=== PATIENT | male | born 1980 | race Caucasian/White ===

== ENCOUNTER 2016-06-27 10:00 | Inpatient (IN) | payer OTHER ==
[~2016-06-27] VITALS: Ht 188 cm; Wt 185.6 kg
--- NOTE | ~2016-06-27 | OR ---
PATIENT'S NAME: EMMANUEL GERBER [facility] AGE: 36 Y [address] ROOM: [place] [id number] LOCATION: [facility] ADMIT DATE: 07/04/2016 OR/Procedure Report DISCHARGE DATE: FAMILY PHYSICIAN: VAL ROSADO MD ATTENDING PHYSICIAN: FADY GREENE SURGEON: Fady Greene MD HOST AND HOSTESS: 1. DEBBIE Adams. 2. 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 DATE OF PROCEDURE: 07/04/2016 PREOPERATIVE DIAGNOSES: 1. Degenerative joint disease, right knee. 2. Obesity (6 feet 2 inches tall and 185.6 kg). POSTOPERATIVE DIAGNOSES: 1. Degenerative joint disease, right knee. 2. Obesity (6 feet 2 inches tall and 185.6 kg). OPERATION: Right total knee arthroplasty with computer navigation. ANESTHESIA: Spinal anesthesia plus adductor canal block plus subcutaneous and periarticular local anesthesia (ropivacaine with epinephrine and Toradol). ESTIMATED BLOOD LOSS: Less than 20 mL. DRAIN: None. SPECIMEN: None. COMPLICATIONS: None. IMPLANT SYSTEM: [employer]. 1. Size 7 right posterior stabilized femoral component. 2. Size 6 universal modular tibial baseplate. 3. An 11 mm posterior stabilized size 6 X3 tibial polyethylene insert. 4. A 35 mm oval X3 patella component. INDICATIONS FOR SURGERY: Emmanuel Gerber is a 36-year-old male who presents with advanced right knee degenerative joint disease and associated severely compromised activities of daily living. The patient has decided to proceed with knee replacement after having been thoroughly counseled regarding the associated risks, benefits, and limitations. We have specifically reviewed the risks and implications of infection, deep venous thrombosis, pulmonary embolism, mortality, neurovascular complications, blood transfusion (and associated potential for disease transmission or transfusion reaction), PATIENT'S NAME: EMMANUEL GERBER [facility] AGE: 36 Y [address] ROOM: [place] [address] LOCATION: [facility] ADMIT DATE: 07/04/2016 OR/Procedure Report DISCHARGE DATE: FAMILY PHYSICIAN: VAL ROSADO MD ATTENDING PHYSICIAN: FADY GREENE stiffness, instability, mechanical deterioration of the components (due to wear and or loosening), and the potential need for revision. We have also emphasized the importance of active involvement and compliance with post- operative physical therapy as a means of optimizing range of motion and functional recovery. Informed consent has been granted. DESCRIPTION OF PROCEDURE: The patient was positioned supine after administration of anesthesia and prophylactic antibiotics. A well-padded pneumatic tourniquet was placed around the right proximal thigh, and the right lower extremity was prepped and draped with vigilant sterile technique. The patient's name as well as the intended operative side and procedure were confirmed with a verbal time-out involving myself, the circulating nurse, the scrub nurse, and the anesthesiologist. Examination under anesthesia demonstrated no active skin lesions or masses. There were well-healed inferomedial and inferolateral arthroscopy portal scars. There was a large effusion. There was no erythema. There was no abnormal warmth. There was a prominent flexion contracture. The thigh was very muscular, and there was a resultant very large soft tissue envelope surrounding the thigh and calf. Range of motion under anesthesia was from a 15 degree flexion contracture to 120 degrees of flexion. There was no ligamentous insufficiency. The right lower extremity was elevated and exsanguinated with an E[employer] wrap, and the pneumatic tourniquet was inflated to 300mmHg. The knee was approached through a longitudinal midline incision. A medial parapatellar arthrotomy was performed and the patella was everted. Examination of the joint space demonstrated a large effusion consisting of benign-appearing translucent synovial fluid. Cruciate ligaments were intact. There were moderate-sized osteophytes at the intercondylar notch. There were large osteophytes at the medial and lateral margins of the femoral trochlea. There were small osteophytes at the medial, lateral, and inferior margins of the patella. There were generalized grade 2 degenerative changes at the patellofemoral joint. There was a 1.5 cm diameter region of full-thickness delamination of articular cartilage from the central aspect of the medial femoral condyle. There were intermixed grade 3 and grade 4 degenerative changes throughout the lateral half of the lateral tibial plateau and the posterior half of the lateral femoral condyle. There was a moderate-sized osteophyte at the lateral femoral condyle. There was a moderate-sized osteophyte at the medial femoral condyle. The lateral meniscus was truncated, and there was degenerative tearing of the remnant of the lateral meniscus. The medial meniscus was intact. Remnants of the menisci and cruciate ligaments were excised. The [employer] PATIENT'S NAME: EMMANUEL GERBER [facility] AGE: 36 Y [address] ROOM: [address] [address] LOCATION: [facility] ADMIT DATE: 07/04/2016 OR/Procedure Report DISCHARGE DATE: FAMILY PHYSICIAN: VAL ROSADO MD ATTENDING PHYSICIAN: FADY GREENE computer navigation femoral tracker was pinned in place at the distal aspect of the femoral trochlea. Absence of motion between the femur and the tracking device was confirmed manually and visually. Femoral osseous landmarks were obtained in order to calibrate the computer navigation system. Landmarks included the center of rotation of the ipsilateral hip, the center-point of the distal femur, the femoral AP axis, 57 points on the medial femoral condyle articular surface, and 57 points on the lateral femoral condyle articular surface. The [employer] computer navigation system was subsequently utilized to position the distal femoral resection block such that the distal femoral resection was performed perfectly perpendicular to the femoral mechanical axis. The distal femoral resection was performed with a [employer] oscillating saw. The [employer] computer navigation tibial tracker was pinned in place at the anterior aspect of the tibial plateau. Absence of motion between the tibia and the tracking device was confirmed manually and visually. Tibial osseous landmarks were obtained in order to calibrate the computer navigation system. Landmarks included the center-point of the tibial plateau, the AP tibial axis, 57 points on the medial tibial plateau articular surface, 57 points on the lateral tibial plateau articular surface, the medial malleolus, and the lateral malleolus. The [employer] computer navigation system was subsequently utilized to position the proximal tibial resection block such that the proximal tibial resection was performed perfectly perpendicular to the tibial mechanical axis. The proximal tibial resection was performed with a [employer] oscillating saw. Perpendicularity of the tibial resection with respect to the tibial shaft axis was reconfirmed by inserting a spacer- block attached to an extramedullary guide alycia. External rotation of the anterior and posterior femoral resections was set parallel to the epicondylar axis and carefully adjusted in order to create a rectangular flexion gap. The box resection was performed with a reciprocating saw. Anterior and posterior chamfer resections were performed with the oscillating saw. Posterior condyle osteophytes were excised with an osteotome. All other osteophytes were excised with a rongeur. Resection of all remnants of the menisci was reconfirmed. Flexion and extension gaps were confirmed to be symmetric and well balanced with a spacer-block technique. The patella resection was performed with an oscillating saw such that the composite thickness of the reconstructed patella was equivalent to the thickness of the moapa patella. Patella tracking was confirmed to be optimal. A limited lateral retinacular release was required in order to effectively jovanny the patella. Lateral retinacular release was required. All trial components were removed and all prepared osseous surfaces were thoroughly irrigated with pulsatile saline lavage and dried prior to cementing PATIENT'S NAME: EMMANUEL GERBER [facility] AGE: 36 Y [address] ROOM: [address] [address] LOCATION: [facility] ADMIT DATE: 07/04/2016 OR/Procedure Report DISCHARGE DATE: FAMILY PHYSICIAN: VAL ROSADO MD ATTENDING PHYSICIAN: FADY GREENE all three components in a single stage using [employer] cement containing pre-mixed tobramycin. All extruded excess cement was removed. The entire joint space was thoroughly inspected and thoroughly irrigated with bacteriostatic pulsatile saline lavage to assure that there was no residual debris of any sort. Final range of motion was from full extension (with no passive hyperextension) to 130 degrees of flexion. Patella tracking was reconfirmed to be optimal. There was excellent anteroposterior stability at 90 degrees of flexion. There was less than 1 mm of medial lift-off to valgus stress in full extension. There was less than 1 mm of lateral lift-off to varus stress in full extension. The arthrotomy was closed with multiple simple and [id number] interrupted #1 Vicryl. Subcutaneous tissues were thoroughly re-irrigated with bacteriostatic pulsatile saline lavage. Subcutaneous tissues were re- approximated with simple buried interrupted #0 Vicryl sutures. The skin was closed with simple buried interrupted 2-0 Vicryl sutures followed by surgical beto. The dressing consisted of Xeroform gauze, 4x4 gauze, ABD pads and two 6-inch Dale Wraps. There were no intra-operative complications. It should be noted that the physician's home based assistant played an active, integral role throughout this entire operation. By providing expert retraction, they greatly facilitated and expedited safe and effective exposure of the distal femur, proximal tibia and patella for preparation and implantation of the components. They were also actively involved in the patient's positioning, prepping and draping, as well as wound closure. MD VANESSA HALL/beatrice /[id number] d: 07/04/16 1459 t: 07/21/164, OPERATIVE SUMMARY
--- NOTE | ~2016-06-27 | DS ---
PATIENT'S NAME: MARK MADSEN [facility] AGE: 36 Y [address] ROOM: [place] [address] LOCATION: [facility] ADMIT DATE: 07/04/2016 Discharge Summary DISCHARGE DATE: 07/06/2016 FAMILY PHYSICIAN: Matteo Kaur MD ATTENDING PHYSICIAN: Fady Greene PRIMARY DIAGNOSIS: Degenerative joint disease of the right knee. SECONDARY DIAGNOSES: 1. Morbid obesity. 2. Hypertension. PROCEDURE PERFORMED: Right total knee arthroplasty. HISTORY: The patient is a 36-year-old male, who presents with advanced right knee degenerative joint disease and associated severely compromised activities of daily living. The patient has decided to proceed with total knee arthroplasty after having been thoroughly counseled regarding the risks, benefits, limitations, and alternatives. Please refer to the outpatient clinic notes and admission history and physical for this patient. HOSPITAL COURSE: The patient underwent a right total knee arthroplasty on 07/04/2016 without complications. Spinal anesthesia plus adductor canal block, plus subcutaneous and periarticular local anesthesia was utilized. The patient received 24 hours of perioperative prophylactic antibiotics and remained hemodynamically stable, neurovascularly intact throughout the entire hospital course. The postoperative prophylactic deep venous thrombosis prophylaxis consisted of Xarelto, early mobilization and pneumatic compression devices. Daily physical therapy for gait training, transfer training range of motion and quadriceps isometric exercises were received. The patient progressed well in physical therapy. On the date of discharge, 07/06/2016, the incision at the knee was healing well and showed no signs of infection. DISPOSITION: Home. DISCHARGE ACTIVITY: The patient is to bear weight as tolerated with range of motion and quadriceps isometric exercises as instructed. The operative extremity is to be elevated at least 90% of the day. There is to be sterile 4x4 gauze dressings to the incision daily. Dr. Greene is to be notified immediately if there is any increased pain, fevers, chills, erythema, or drainage. DISCHARGE MEDICATIONS: 1. Hydromorphone 2 mg, 1 to 2 tablets p.o. every 4 hours p.r.n. for pain. 2. Gabapentin 300 mg 1 tablet p.o. twice daily for 3 days. PATIENT'S NAME: MARK MADSEN [facility] AGE: 36 Y [address] ROOM: [address] [address] LOCATION: [facility] ADMIT DATE: 07/04/2016 Discharge Summary DISCHARGE DATE: 07/06/2016 FAMILY PHYSICIAN: Matteo Kaur MD ATTENDING PHYSICIAN: Fady Greene 3. Xarelto 10 mg 1 tablet p.o. daily for 12 days for postoperative DVT prophylaxis. 4. Diazepam 5 mg 1/2 to 1 tablet p.o. every 6 hours p.r.n. for muscle spasms. 5. Celebrex 200 mg 1 tablet p.o. b.i.d. x7 days. He was then instructed to continue all his other pre-admission medications as instructed by his internal medicine doctor. FOLLOWUP: Followup appointment is to be with Dr. Greene's office on 07/11/2016 for his initial postoperative evaluation with x-rays and staple removal. CLEMENT HERMAN PA-C FOR FADY GREENE MD SMW/lucyl /[id number] d: 07/16/16 0223 t: 07/19/16 1044, DISCHARGE SUMMARY
[2016-06-27] MEDS ORDERED: PHENTERMINE H37.5 MG PO (12:25)
[2016-06-27] MEDS ORDERED: DICLOFENAC SOD100 MG PO (12:25)
[2016-06-27] MEDS ORDERED: ULTRAM50 MG PO (12:26)
[2016-06-27] MEDS ORDERED: DEPO-TESTO200 MG/1 M IM (12:27)
[2016-07-06] MEDS ORDERED: TYLENOL EXTRA500 MG PO (09:42)
[2016-07-06] MEDS ORDERED: COLACE100 MG PO (09:44)
[2016-07-06] MEDS ORDERED: NEURONTIN300 MG PO (09:46)
[2016-07-06] MEDS ORDERED: MIRALAX17 GM PO (09:47)
[2016-07-06] MEDS ORDERED: XARELTO10 MG PO (09:48)
[2016-07-06] MEDS ORDERED: VALIUM5 MG PO (09:51)
[2016-07-06] MEDS ORDERED: DILAUDID 2MG(HYD2 MG PO (09:52)
[2016-07-06] MEDS ORDERED: CELEBREX200 MG PO (09:54)
[2016-07-06] MEDS ORDERED: TOPROL XL25 MG PO (12:26)
== END 2016-07-06 15:20 | disposition disaster alternative care site (69) | DRG 470 ==
LOC: G3N 07-04 06:08
PROVIDERS: ADMIT Orthopaedic Surgery
PROC: 0SRC0J9 Replacement of Right Knee Joint with Synthetic Substitute, Cemented, Open Approach (ICD-10-PCS; principal; 2016-07-04)
DX: M17.11 Unilateral primary osteoarthritis, right knee (principal); Z68.43 Body mass index [BMI] 50.0-59.9, adult; I10 Essential (primary) hypertension; E66.01 Morbid (severe) obesity due to excess calories; M10.9 Gout, unspecified; I83.90 Asymptomatic varicose veins of unspecified lower extremity; Z87.891 Personal history of nicotine dependence
CPT/HCPCS: C1713; C1776; J1071; J1100; J1170; J1885; J2250; J2795; J7120

== ENCOUNTER → 2016-06-30 | Outpatient (CLI) | payer OTHER ==
[~2016-06-30] MED LIST: CELEBREX200 MG PO; COLACE100 MG PO; DEPO-TESTO200 MG/1 M IM; DICLOFENAC SOD100 MG PO; DILAUDID 2MG(HYD2 MG PO; MIRALAX17 GM PO; NEURONTIN300 MG PO; PHENTERMINE H37.5 MG PO; TOPROL XL25 MG PO; TYLENOL EXTRA500 MG PO; ULTRAM50 MG PO; VALIUM5 MG PO; XARELTO10 MG PO
== END | disposition disaster alternative care site (69) ==
LOC: GNJRC 11:00
DX: Z01.812 Encounter for preprocedural laboratory examination (principal); M17.11 Unilateral primary osteoarthritis, right knee